=== PATIENT | male | born 1990 | race Two or more races ===

== ENCOUNTER 2018-04-29 14:51 | Emergency (ER) | payer SELFPAY ==
[~2018-04-29] VITALS: Ht 172.7 cm; Wt 68.0 kg
[2018-04-29 14:51] VITALS: BP 136/74
== END 2018-04-29 15:25 | disposition home or self-care (01) ==
LOC: ER 14:52
DX: Z76.0 Encounter for issue of repeat prescription (principal); F98.8 Other specified behavioral and emotional disorders with onset usually occurring in childhood and adolescence; Z88.6 Allergy status to analgesic agent
CPT/HCPCS: 99281; A4606; Z7610; Z7502